=== PATIENT | male | born 2000 | race Caucasian/White ===

== ENCOUNTER 2018-05-02 16:43 | Emergency (ER) ==
[2018-05-02 16:58] VITALS: BP 175/103; TEMP 98.1; BMI 24.4
--- NOTE | 2018-05-02 18:12 | ED.PDOC ---
General ED Provider: Dr. 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 He has sustained skin abrassion on the right hand which he cleaned well. Denies any pain. [place] is up to date. Time Seen by Physician: 18:10 Mode of Arrival: Walk-In Information Source: Patient Nursing and Triage Documentation Reviewed and Agree: Yes Does patient meet sepsis criteria?: No System Inflammatory Response Syndrome: Not Applicable Sepsis Protocol: For patient's 13 years and over: Temp is 96.8 and below OR 101 and greater Pulse >90 BPM Resp >20/minute Acutely Altered Mental Status Are patient's symptoms suggestive of a new infection, such as: -Pneumonia -Skin, Soft Tissue -Endocarditis -UTI -Bone, Joint Infection -Implantable Device -Acute Abdominal Infection -Wound Infection -Meningitis -Blood Stream Catheter Infection -Unknown Skin Complaint Exam - Skin/Soft Tissue Complaint/Exam Onset/Duration: today Symptoms Are: Resolved Initial Severity: Mild Current Severity: Mild Character: Denies: Redness, Swelling, Raised, Painful Associated Signs and Symptoms: Reports: Bruising Related History: Denies: Recent trauma, Foreign body, Insect bite/sting Skin Findings: Present: Other (small 2mm abrassions on the right hand in two places. Healing and Dry. No redness noted. ) Differential Diagnoses: Other (Skin abrassion. ) Review of Systems - Review Of Systems Constitutional: Reports: No symptoms Eyes: Reports: No symptoms Ears, Nose, Mouth, Throat: Reports: No symptoms Respiratory: Reports: No symptoms Cardiac: Reports: No symptoms GI: Reports: No symptoms : Reports: No symptoms Musculoskeletal: Reports: No symptoms Skin: Reports: Bruising (Right hand ) Neurological: Reports: No symptoms Endocrine: Reports: No symptoms Hematologic/Lymphatic: Reports: No symptoms All Other Systems: Reviewed and Negative Past Medical History - Past Medical History Previously Healthy: Yes Endocrine: Reports: None Cardiovascular: Reports: None Respiratory: Reports: None Hematological: Reports: None Gastrointestinal: Reports: None Genitourinary: Reports: None Neuro/Psych: Reports: None Musculoskeletal: Reports: None Cancer: Reports: None - Surgical History General Surgical History: Reports: None - Family History Family History: Reports: None - Social History Smoking Status: Never smoker Hx Substance Use: No Alcohol Screening: None - Immunizations Tetanus Shot up to Date: No Physical Exam - Physical Exam Appearance: Well-appearing, No pain distress, Well-nourished Eyes: JEFFREY, EOMI, Conjunctiva clear ENT: Ears normal, Nose normal, Oropharynx normal Respiratory: Airway patent, Breath sounds clear, Breath sounds equal, Respirations nonlabored Cardiovascular: RRR, Pulses normal, No rub, No murmur GI/: Soft, Nontender, No masses, Bowel sounds normal, No Organomegaly Musculoskeletal: Normal strength, ROM intact, No edema, No calf tenderness Skin: Warm, Dry Neurological: Sensation intact, Motor intact, Reflexes intact, Cranial nerves intact, Alert, Oriented Psychiatric: Affect appropriate, Mood appropriate Critical Care Note - Critical Care Note Total Time (mins): 0 Comments: Declined Antibiotics since had no puncture wound. Course - Course Vital Signs: Temp Pulse Resp BP Pulse Ox 05/02/18 16:44 98.1 F 94 H 18 175/103 H 99 Departure - Departure Time of Disposition: 18:11 Disposition: HOME SELF-CARE Discharge Problem: Dog bite of hand without complication Qualifiers: Encounter type: initial encounter Laterality: right Qualified Code(s): S61.451A - Open bite of right hand, initial encounter Instructions: Animal Bite (ED), Abrasion (ED) Condition: Stable Pt referred to PMD for follow-up: Yes IPMP verified?: No Additional Instructions: Watch are for increased redness or pain and call your doctor. Allergies/Adverse Reactions: Allergies No Known Allergies Allergy (Unverified 05/02/18 16:47) Home Medications: Ambulatory Orders 1 [No Reported Medications] 05/02/18 Disposition Discussed With: Patient
== END 2018-05-02 18:25 | disposition home or self-care (01) ==
LOC: ED 16:43
DX: S61.451A Open bite of right hand, initial encounter (principal); W54.0XXA Bitten by dog, initial encounter
CPT/HCPCS: 99283